=== PATIENT | male | born 1985 | race Caucasian/White ===

== ENCOUNTER 2018-10-25 21:47 | Emergency (ER) | payer BC ==
[~2018-10-25] VITALS: Ht 182.9 cm; Wt 99.8 kg
[2018-10-25 21:54] VITALS: Ht 182.9 cm; Wt 99.8 kg
[2018-10-25 22:26] LABS: BASOPHIL % 0.4 % (0-2); RED CELL DISTRIBUTION WIDTH 12.7 % (11.5-14.5)
[2018-10-25 22:27] LABS: PLATELET COUNT 123 x10^3mcL (130-400)
[2018-10-25 22:31] LABS: CALCIUM 8.6 mg/dL (8.5-10.1); CARBON DIOXIDE 24.8 mmol/L (21-32); CHLORIDE SERUM 100 mmol/L (98-107); CREATININE SERUM 1.2 mg/dL (0.7-1.3); GFR1 > 60 mL/min; GLUCOSE SERUM 398 mg/dL (74-106); POTASSIUM SERUM 3.7 mmol/L (3.5-5.1); SODIUM SERUM 135 mmol/L (136-145)
[2018-10-25 22:36] LABS: ALBUMIN 3.8 g/dL (3.4-5.0); ALKALINE PHOSPHATASE 102 U/L (46-116); ALT/SGPT 46 U/L (16-63); AST/SGOT 18 U/L (15-37); BILIRUBIN TOTAL 0.3 mg/dL (0.20-1.00); TOTAL PROTEIN, SERUM 7.3 g/dL (6.4-8.2)
[2018-10-25 23:49] LABS: AMPHETAMINE QUAL UR NONE DETECTED (See below)
[2018-10-26 01:36] VITALS: BP 125/77
== END 2018-10-26 01:36 | disposition home or self-care (01) ==
LOC: ED 21:47
PROVIDERS: Emergency Medicine
DX: F19.10 Other psychoactive substance abuse, uncomplicated (principal); R07.89 Other chest pain; I10 Essential (primary) hypertension; E11.9 Type 2 diabetes mellitus without complications; E78.00 Pure hypercholesterolemia, unspecified
CPT/HCPCS: 82962; G0480; J1885; J2060; J7030